=== PATIENT | male | born 1960 | race Caucasian/White ===

== ENCOUNTER 2016-08-31 11:02 | Emergency (ER) | payer OTHER ==
--- NOTE | 2016-08-31 11:29 | EDM.PDOC ---
ED HPI GENERAL MEDICAL PROBLEM - General Chief Complaint: Lower Extremity Injury/Pain Stated Complaint: FALL Time Seen by Provider: 08/31/16 11:28 Source of Information: Reports: Patient History Limitations: Reports: No Limitations - History of Present Illness INITIAL COMMENTS - FREE TEXT/NARRATIVE: HISTORY AND PHYSICAL: History of present illness: [Patient comes to the emergency room complaining of right lower leg pain. He was carrying an object down some stairs on Thursday evening August 29, when he missed the last couple of stairs of falling to his knees. Did not hit his head or lose consciousness. States that his foot flexed severely with his right great toe touching his right tibia. Complains of bruising and swelling to his right ankle and pain across the top of his foot. His knees hurt and are swollen but has been able to extend and flex them. Denies numbness and tingling. Has had sensation to his foot. Has been walking with a walker. He's been applying ice, taking Advil and wrapping with Armin wraps. Had some leftover hydromorphone from previous injuries which he has also taken and has improved his pain. He is unable to tolerate hydrocodone. ] Review of systems: As per history of present illness and below otherwise all systems reviewed and negative. Past medical history: As per history of present illness and as reviewed below otherwise noncontributory. Surgical history: As per history of present illness and as reviewed below otherwise noncontributory. Social history: No reported history of drug or alcohol abuse. Family history: As per history of present illness and as reviewed below otherwise noncontributory. Physical exam: HEENT: Atraumatic, normocephalic. Lungs: Clear to auscultation, breath sounds equal bilaterally. Heart: S1S2, regular rate and rhythm. Extremities: R ankle is ecchymotic to dorsum of foot at flexure and to medial malleolus. Pain to R great toe and across top of foot. Mild tenderness to distal tibia. Knees show mild swelling and stiffness, nontender w/ palpation. Atraumatic, negative for cords or calf pain. Pedal pulses are intact. Neurovascular unremarkable. Neuro: Awake, alert, oriented. Motor and sensory unremarkable throughout. Exam nonfocal. Diagnostics: [R ankle and foot xrays.] Impression: [R Distal fibula fracture, mildly displaced] Plan: [Discussed xrays with Dr. Martin by phone who recommends a long lower leg splint, non weightbearing and follow up in office on Thursday. Discussed x-ray findings and these recommendations with the patient, who is in agreement w/ today's plan. Splint placed and crutches given. Rx written for hydromorphone 2mg (#10) si po q 6 hours prn severe pain. Patient will await Dr. Martin's nurses phone call tomorrow a.m. to schedule Tuesdays appointment. ] Definitive disposition and diagnosis as appropriate pending reevaluation and review of above. Right Ankle Pain Score (Numeric/FACES): 6 - Related Data Allergies Allergy/AdvReac Type Severity Reaction Status Date / Time No Known Allergies Allergy Verified 08/31/16 11:29 Home Meds: Home Meds Allopurinol [Zyloprim] 100 mg PO DAILY 08/31/16 [History] Doxazosin [Cardura] 4 mg PO DAILY 08/31/16 [History] Hydrochlorothiazide 25 mg PO DAILY 08/31/16 [History] amLODIPine [Norvasc] 10 mg PO BEDTIME 08/31/16 [History] Past Medical History HEENT History: Reports: Epistaxis Cardiovascular History: Reports: Hypertension Genitourinary History: Reports: Other (See Below) Other Genitourinary History: kidney failure from b/p meds - Infectious Disease History Infectious Disease History: Reports: Chicken Pox - Past Surgical History GI Surgical History: Reports: Bariatric Procedure Dermatological Surgical History: Reports: Skin Graft Social & Family History - Tobacco Use Smoking Status *Q: Never Smoker Second Hand Smoke Exposure: No - Alcohol Use Days Per Week of Alcohol Use: 0 - Recreational Drug Use Recreational Drug Use: No Review of Systems - Review of Systems Review Of Systems: ROS reveals no pertinent complaints other than HPI. ED EXAM, GENERAL - Physical Exam Exam: See Below Course - Vital Signs Last Recorded V/S: Last Vital Signs Temp 97.9 F 08/31/16 11:10 Pulse 73 08/31/16 14:08 Resp 16 08/31/16 14:08 BP 139/83 08/31/16 14:08 Pulse Ox 99 08/31/16 14:08 - Orders/Labs/Meds Orders: Active Orders 24 hr Category Date Time Status Ankle Min 3V Rt [CR] Stat Exams 08/31/16 11:36 Taken Foot 2V Rt [CR] Stat Exams 08/31/16 11:36 Taken Departure - Departure Time of Disposition: 13:52 Disposition: Home, Self-Care 01 Condition: Good Clinical Impression: Closed right fibular fracture Qualifiers: Encounter type: initial encounter Fibula location: distal Fracture morphology: unspecified fracture morphology Qualified Code(s): S82.831A - Other fracture of upper and lower end of right fibula, initial encounter for closed fracture - Discharge Information Instructions: Tibial and Fibular Fracture, Adult Referrals: Mynor Chen MD [Primary Care Provider] - Forms: ED Department Discharge Care Plan Goals: The following information is given to patients seen in the emergency department who are being discharged to home. This information is to outline your options for follow-up care. We provide all patients seen in our emergency department with a follow-up referral. The need for follow-up, as well as the timing and circumstances, are variable depending upon the specifics of your emergency department visit. If you don't have a primary care physician on staff, we will provide you with a referral. We always advise you to contact your personal physician following an emergency department visit to inform them of the circumstance of the visit and for follow-up with them and/or the need for any referrals to a consulting specialist. The emergency department will also refer you to a specialist when appropriate. This referral assures that you have the opportunity for follow-up care with a specialist. All of these measure are taken in an effort to provide you with optimal care, which includes your follow-up. Under all circumstances we always encourage you to contact your private physician who remains a resource for coordinating your care. When calling for follow-up care, please make the office aware that this follow-up is from your recent emergency room visit. If for any reason you are refused follow-up, please contact the [facility] emergency department at and asked to speak to the emergency department charge nurse. [facility] [address] [place] [address], [address] [place] [address] Someone from the above listed clinic will call you tomorrow to get an appointment scheduled for Thursday. No weightbearing. Return to ER as needed as discussed. - My Orders Last 24 Hours: My Active Orders 08/31/16 11:36 Ankle Min 3V Rt [CR] Stat Foot 2V Rt [CR] Stat - Assessment/Plan Last 24 Hours: My Active Orders 08/31/16 11:36 Ankle Min 3V Rt [CR] Stat Foot 2V Rt [CR] Stat
[2016-08-31 14:12] VITALS: BP 139/83
--- NOTE | 2016-09-01 14:56 | CR ---
EXAM DATE: 08/31/16 PATIENT'S AGE: 55 Patient: SURYA FLORES Facility: [place], [place] Site . Site : 1960 Study: XRay Extremity Right FOOT [id number]/23/2017 11:55:22 AM Ordering Physician: Doctor Villalta Final Report: HISTORY: Pain after falling injury yesterday. Findings: Two views of the right foot are provided. Mild degenerative change of the 1st MTP joint is noted. The MTP joints 2 through 5 are held in prominent extension. There is an apparent two-part appearance to the medial sesamoid along the base of the distal 1st metatarsal. This could represent developmental variation but could also be secondary to fracture. Otherwise are is no evidence for fracture or dislocation elsewhere. Posterior and plantar spurring of the calcaneus is noted. Impression: Two-part appearance to the medial sesamoid. This could represent developmental variation. If there is point tenderness in this region these findings could represent stress fracture or posttraumatic fracture. Dictated by Rivas Narvaez MD @ Aug 31 2016 12:35PM (Electronic Signature) Report Signed by Proxy. PAKO
--- NOTE | 2016-09-01 14:57 | CR ---
EXAM DATE: 08/31/16 PATIENT'S AGE: 55 Patient: SURYA FLORES Facility: [place], [place] Site . Site : 1960 Study: XRay Extremity Right ANKLE [id number]/23/2017 11:55:59 AM Ordering Physician: Doctor Villalta Final Report: HISTORY: Pain and swelling after injury on August 29. Findings: There is an oblique fracture of the distal metadiaphysis of the fibula with lateral displacement of the distal fragment by approximately 5 mm. No significant angulation is noted. In addition there is widening of the medial ankle joint space probably due to additional soft tissue injury. There is poorly defined mineralized material seen along the medial ankle joint line could represent dystrophic calcification or small chip type fractures. A transverse fracture of the tibia is not identified. Diffuse soft tissue swelling is noted. Impression: Fracture subluxation as discussed with oblique mildly displaced fracture of the distal fibula and widening of the medial ankle joint space. Dictated by Rivas Narvaez MD @ Aug 31 2016 12:38PM (Electronic Signature) Report Signed by Proxy. PAKO
== END 2016-08-31 14:08 | disposition home or self-care (01) ==
LOC: MW.ED 11:02
DX: S82.831A Other fracture of upper and lower end of right fibula, initial encounter for closed fracture (principal); I10 Essential (primary) hypertension; Z79.899 Other long term (current) drug therapy; W10.9XXA Fall (on) (from) unspecified stairs and steps, initial encounter
CPT/HCPCS: 73610-26-RT; 73610-RT; 73620-26-RT; 73620-RT; 99283

== ENCOUNTER 2016-09-05 06:20 | Day surgery (SDC) | payer OTHER ==
[2016-09-05] MEDS ORDERED: ceFAZolin 2 GM in Premix Bag 1 BAG IV ONE (07:00)
[2016-09-05] MEDS ORDERED: Lactated Ringers 1,000 ML IV SCH (07:00)
[2016-09-05] MEDS ORDERED: fentaNYL 250 MCG/5 ML SDV ONE (07:17)
[2016-09-05] MEDS ORDERED: Lidocaine 2% 5 ML SDV ONE (07:17)
[2016-09-05] MEDS ORDERED: HYDROmorphone 2 MG/ML Syringe ONE (07:17)
[2016-09-05] MEDS ORDERED: Midazolam 1 MG/ML 2 ML SDV ONE (07:17)
[2016-09-05] MEDS ORDERED: Propofol 200 MG/20 ML SDV ONE (07:17)
[2016-09-05] MEDS ORDERED: Ondansetron 4 MG/2 ML SDV ONE (07:17)
[2016-09-05] MEDS ORDERED: Bupivacaine 0.25%/EPINEPHrine 1:200,000 10 ML SDV ONE (07:28)
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
[2016-09-05] MEDS ORDERED: fentaNYL 100 MCG/2 ML SDV IVPUSH PRN (08:13)
[2016-09-05] MEDS ORDERED: Phenylephrine/Normal Saline 100 MCG/ML 10 ML Syringe ONE (08:47)
[2016-09-05] MEDS ORDERED: Bupivacaine 0.25% 10 ML SDV ONE (08:54)
[2016-09-05] MEDS ORDERED: Acetaminophen/HYDROcodone 325-5 MG Tab ONE (09:18)
--- NOTE | 2016-09-05 09:18 | PCM.OPNOTE ---
- General Post-Op/Procedure Note Date of Surgery/Procedure: 09/05/16 Operative Procedure(s): ORIF right ankle lateral malleolus and syndesmosis Findings: fx with syndesmosis disruption Pre Op Diagnosis: right ankle lateral malleolus fx with syndesmosis disruption Post-Op Diagnosis: same Anesthesia Technique: General ET Tube Primary Surgeon: Crow John Mai EBL in mLs: 20 Complications: none Condition: Good Free Text/Narrative:: 35 minute tourniquet time
--- NOTE | 2016-09-05 09:30 | PCM.POSTAN ---
POST ANESTHESIA ASSESSMENT - MENTAL STATUS Mental Status: Alert, Oriented - VITAL SIGNS Pulse Rate: 77 SaO2: 97 Resp Rate: 11 Blood Pressure: 140/76 - RESPIRATORY Respiratory Status: respiratory rate WNL, Airway Patent, O2 Saturation Stable, Supplemental Oxygen - CARDIOVASCULAR CV Status: Pulse Rate WNL, Blood Pressure Stable - GASTROINTESTINAL GI Status: No Symptoms - PAIN Pain Score: 4 (Pt getting one dose of Fentanyl, then will go to phase II) - POST OP HYDRATION Hydration Status: Adequate & Stable - OBSERVATIONS Free Text/Narrative:: Pt stable with pain well controlled and no nausea at this time.
[2016-09-05] MEDS ORDERED: Acetaminophen/HYDROcodone 325-10 MG Tab PO ONE (09:53)
--- NOTE | 2016-09-05 11:03 | OR ---
SURGEON: Crow Martin MD DATE OF PROCEDURE: 09/05/2016 PREOPERATIVE DIAGNOSIS: Right ankle lateral malleolus fracture with syndesmosis disruption. POSTOPERATIVE DIAGNOSIS: Right ankle lateral malleolus fracture with syndesmosis disruption. OPERATION PERFORMED: Open reduction and internal fixation, right ankle lateral malleolus and syndesmosis. ANESTHESIA: General. COMPLICATIONS: None. ESTIMATED BLOOD LOSS: 20 mL. SPECIMENS: None. TOURNIQUET TIME: 35 minutes. IMPLANTS: [place] 6 hole fibular locking plate, one 3.5 interfragmentary screw, two proximal nonlocking 3.5 screws and two proximal 3.5 locking screws, one distal nonlocking 3.5 screw and four distal 3.5 locking screws, and Arthrex TightRope syndesmosis device. INDICATIONS: The patient is a 55-year-old male, who six days ago suffered an ankle fracture due to displacement. I discussed with the patient the risks, benefits, and potential complications of open reduction and internal fixation, including not limited to, infection, neurovascular injury, continued pain, malunion, nonunion, need for postoperative protocol, DVT, PE, stroke, TN, , and he wished to proceed. DESCRIPTION OF PROCEDURE: The patient was seen in the preoperative area, upper extremity was marked with the patient. He was transferred to the operating room, placed supine on the operating room table. General anesthesia was induced. An endotracheal tube was placed. He received preop antibiotics with Ancef. The right leg was prepped and draped in usual sterile fashion using alcohol followed by ChloraPrep after placing in a well-padded upper thigh tourniquet. A formal time-out was taken, identifying the correct patient, procedure, and extremity. The patient had a bump under his right thigh. Limb was exsanguinated with an Esmarch bandage. Tourniquet inflated to 250 mmHg. A 10 cm incision centered over the lateral malleolus was made. Dissection was carried down to the subcutaneous tissues. Hemostasis was obtained. The superficial peroneal nerve was found in superior aspect of the wound and protected throughout the case, and then the fracture was exposed subperiosteally. It was a typical superoposterior to anteroinferior oblique fracture. It was able to be reduced with reduction clamps and then held with a 0.062 K-wire and then from anterior proximal to distal posterior, a 3.5 screw was placed in lag fashion. A 6 hole Saqib lateral malleolar fibular plate was then placed. Two proximal 3.5 screws were placed. Did not want to sit anatomically in the superior aspect, did sit a little anterior but the screws would be able to be placed into the bone. One distal 3.5 screw was placed bicortically and then four distal locking screws were placed unicorticalIy into the fibula and then two more proximal locking screws were placed bicortically into the fibula. It was checked under fluoroscopy and in mortise view with external rotation showing the syndesmosis did widen and medial joint space widened, so a tiny stab incision was made medially and a reduction clamp was placed on the plate in the medial malleolus and the syndesmosis was reduced and then angling 20 to 30 degrees anteriorly through one of the screw holes distally about 2 cm above the joint line. A 3.5 drill bit was drilled across four cortices and the Arthrex syndesmosis TightRope was placed across. The button came down over the medial cortex of the tibia and it was then tightened down and secured and tied. The tourniquet was then deflated. Hemostasis was obtained. Final x-rays confirmed anatomic reduction and no more widening of the mortise. The fat layer was able to be closed over the plate with 2-0 Vicryl. The subcutaneous tissues were closed with 2-0 Strata-Fix and skin was closed with eunice as well as poke holes medially. Xeroform and a Carmine type splint was placed. The patient was extubated in the operating room and transferred to recovery room in stable condition. Sponge and needle counts were correct at the end of the case. There were no complications. PLAN: The patient will be kept nonweightbearing for six weeks and just foot down for balance. EVANS / JANEEN /[id number]
[2016-09-05 13:11] VITALS: BP 129/76
--- NOTE | 2016-09-08 13:20 | CR ---
EXAMINATION: Right tibia and fibula HISTORY: ORIF COMPARISON: 08/31/2016 TECHNIQUE: 7 fluoroscopic images provided FINDINGS/IMPRESSION: Operative control films demonstrate screw and plate hardware fixating a distal fibular fracture. A syndesmotic anchor is noted.
== END 2016-09-05 12:42 | disposition home or self-care (01) ==
LOC: MW.SDS 06:20
PROVIDERS: ATTEND Orthopaedic Surgery
PROC: 0QSJ04Z Reposition Right Fibula with Internal Fixation Device, Open Approach (ICD-10-PCS; principal; 2016-09-05)
DX: S82.61XA Displaced fracture of lateral malleolus of right fibula, initial encounter for closed fracture (principal); S93.431A Sprain of tibiofibular ligament of right ankle, initial encounter; I10 Essential (primary) hypertension; G47.30 Sleep apnea, unspecified; M10.9 Gout, unspecified; E11.9 Type 2 diabetes mellitus without complications; E66.9 Obesity, unspecified; Z79.899 Other long term (current) drug therapy; Z99.89 Dependence on other enabling machines and devices; Z98.84 Bariatric surgery status; Z98.890 Other specified postprocedural states; Z68.35 Body mass index [BMI] 35.0-35.9, adult
CPT/HCPCS: 27792; 76000; A9270; J1170; J2250; J2405; J3010; J7120; 01480; C1713; J2704